=== PATIENT | male | born 1955 | race African-American/Black ===

== ENCOUNTER → 2023-08-25 | Emergency (ER) | payer OTHER, MEDICARE ==
[~2023-08-25] MED LIST: CHLORPROMAZINE 25 MG TAB PO ONE; FAMOTIDINE 20 MG/2 ML VIAL IV ONE; METOCLOPRAMIDE 10 MG/2mL INJ ONE; NA CHLORIDE 0.9% 1,000 ML ONE
[2023-08-25 01:48] LABS: Absolute Basophils 0.1 K/uL (0-0.5); Absolute Eosinophils 0.2 K/uL (0-0.5); Absolute Lymphocytes (CBC) 1.7 K/uL (0.7-4.9); Absolute Monocytes 1.3 K/uL (0.1-1.3); Absolute Neutrophil 10.6 K/uL (1.8-8.0); Basophils % 0.4 % (0-1.3); Eosinophils % 1.1 % (0-4.4); Hematocrit 40.3 % (39.6-49.0); Hemoglobin 13.4 g/dL (13.6-17.9); Lymphocytes % 12.4 % (15.3-44.8); MCH 26.6 pg (27.0-35.0); MCHC 33.2 g/dL (32.0-36.0); MCV 80.2 fL (80-100); MPV 7.8 fL (7.6-11.3); Monocytes % 9.7 % (3.3-12.3); Neutrophils % 76.4 % (41.7-73.7); Nucleated Red Blood Cells % 0.1 % (0-0); Platelets 250 thou/uL (152-406); RBC Red Blood Cell Count 5.03 M/uL (4.33-5.43); Red Cell Distribution Width 15.1 % (12.1-15.2)
[2023-08-25 01:59] LABS: Albumin/Globulin Ratio 0.7 (1.1-1.8); Anion Gap 8.4 mEq/L (5.0-15.0); Bilirubin Total 0.6 mg/dL (0.2-1.0); Globulin 4.4 g/dL (2.3-3.5); Potassium 3.4 mEq/L (3.5-5.1); Protein, Total 7.4 g/dL (6.4-8.2)
[2023-08-25 04:58] LABS: Specific Gravity > 1.030 (1.005-1.030); Sqamous Epithelial <5 /HPF (None Seen); Urine Bacteria None Seen /HPF (<20); Urine Bilirubin NEGATIVE (Negative); Urine Blood Negative (Negative); Urine Clarity Clear (Clear); Urine Color Light-Yellow (Yellow); Urine Culture Reflex Order NOT NEEDED; Urine Glucose NEGATIVE (Negative); Urine Ketones TRACE (Negative); Urine Micro Reflex YN NO BILL MICROSCOPIC; Urine Mucus Slight /HPF (None Seen); Urine Nitrite NEGATIVE (Negative); Urine Protein NEGATIVE (Negative); Urine RBC None Seen /HPF (None Seen); Urine Urobilinogen Normal (Normal); Urine WBC <5 /HPF (<5)
--- NOTE | 2023-08-25 05:44 | EDPHYS ---
Physician Documentation [facility] Name: Gerhard Saravia Age: 68 yrs Sex: Male : 1955 Arrival Date: 08/25/2023 Time: 00:47 Bed 6 Private MD: ED Physician Wilmer Ruiz HPI: 08/24 00:57 This 68 yrs old Black Male presents to ER via Unassigned with complaints of Post sp4 Surgical Pain, Abdominal Pain, Constipation, Epigastric Pain, HICCUPS FOR 2+ DAYS. 05:52 Six 8-year-old male presents with abdominal discomfort and hiccups also abdominal sp4 bloating and distention and complaining of no bowel movement since surgery. Surgery was done at [facility] by Dr. Foy. Patient has had right inguinal hernia repair by Dr. Foy at [facility]. . Historical: - Allergies: 01:20 Flu shot; jb4 - PMHx: 01:20 Inguinal hernia; jb4 - PSHx: 01:20 hernia repair; jb4 - Immunization history:: Adult Immunizations up to date. - Social history:: Smoking status: Patient denies any tobacco usage or history of. - Family history:: not pertinent. ROS: 05:52 Constitutional: Negative for fever, chills, and weight loss, abdominal bloating, sp4 positive abdominal pain, positive constipation, positive hiccups 05:52 All other systems are negative, Exam: 05:52 Constitutional: This is a well developed, well nourished patient who is awake, alert, sp4 and in no acute distress. Head/Face: Normocephalic, atraumatic. Eyes: Pupils equal round and reactive to light, extra-ocular motions intact. Lids and lashes normal. Conjunctiva and sclera are not injected. Cornea within normal limits. Periorbital areas with no swelling, redness, or edema. ENT: Nares patent. No nasal discharge, no septal abnormalities noted. Tympanic membranes are normal and external auditory canals are clear. Oropharynx with no redness, swelling, or masses, exudates, or evidence of obstruction, uvula midline. Mucous membranes moist. Neck: Trachea midline, no thyromegaly or masses palpated, and no cervical lymphadenopathy. Supple, full range of motion without nuchal rigidity, or vertebral point tenderness. Chest/axilla: Normal chest wall appearance and motion. Nontender with no deformity. No lesions are appreciated. Cardiovascular: Regular rate and rhythm with a normal S1 and S2. No gallops, murmurs, or rubs. Normal PMI, no JVD. No pulse deficits. Respiratory: Lungs have equal breath sounds bilaterally, clear to auscultation and percussion. No rales, rhonchi or wheezes noted. No increased work of breathing, no retractions or nasal flaring. Abdomen/GI: Soft, with normal bowel sounds. No distension or tympany. No guarding or rebound. No evidence of tenderness throughout. Back: No spinal tenderness. No costovertebral tenderness. Male : There is a moderate-sized postoperative incision right groin associated with swelling and hematoma. Also postoperative scrotal swelling as well Skin: Warm, dry with normal turgor. Normal color with no rashes, no lesions, and no evidence of cellulitis. MS/ Extremity: Pulses equal, no cyanosis. Neurovascular intact. Full, normal range of motion. Neuro: Awake and alert, GCS 15, oriented to person, place, time, and situation. Cranial nerves II-XII grossly intact. Motor strength 5/5 in all extremities. Sensory grossly intact. Psych: Awake, alert, with orientation to person, place and time. Behavior, mood, and affect are within normal limits Vital Signs: 01:14 BP 153 / 83; Pulse 73; Resp 16; Temp 97.7(O); Pulse Ox 100% on R/A; Weight 115.67 kg jb4 (R); Height 5 ft. 7 in. (R); 02:30 BP 152 / 91; Pulse 83; Resp 14; Pulse Ox 96% on R/A; vc1 04:00 BP 140 / 82; Pulse 79; Resp 14; Pulse Ox 94% on R/A; vc1 05:30 BP 138 / 80; Pulse 81; Resp 15; Pulse Ox 95% ; vc1 01:14 Body Mass Index 39.94 (115.67 kg, 170.18 cm) jb4 MDM: 01:01 Patient medically screened. sp4 05:39 ED course: CLINICAL HISTORY: post hernia sx and pelvic pain, hiccups COMPARISON: None. sp4 TECHNIQUE: CTABDOMEN PELVIS WITH IV CONTRAST on 08/25/2023 1:15 AM CDT This exam was performed according to our departmental dose-optimization program, which includes automated exposure control, adjustment of the mA and/or kV according to patient size and/or use of iterative reconstruction technique. FINDINGS: Lower lungs are clear. Abdomen: The liver is normal in appearance. There is no biliary dilatation. Gallbladder is normal in appearance. The pancreas and spleen are normal in appearance. Adrenal glands are normal. Kidneys are mildly atrophic. There is mild fullness of the right renal collecting system and proximal right ureter. There is no clear distal ureteral obstructing lesion. Abdominal aorta is normal in course and caliber without aneurysm. There is no free air. There is no retroperitoneal adenopathy. Pelvis: There is no bowel obstruction. Urinary bladder is unremarkable. There is no free fluid. Appendix is normal. There is a moderate fat-containing right inguinal hernia containing portion of the bladder dome. There is air within the lower aspect of the inguinal hernia as well as within portions of the inferior right scrotal wall. There is a small fat-containing left inguinal hernia. There is diffuse scrotal edema bilaterally, more so on the right. There is stranding throughout the right groin subcutaneous fat with a small presumed hematoma measuring 3.2 cm. Skeleton: There are no acute osseous findings. No suspicious bony lesions. IMPRESSION: Mostly right inguinal hernia with extensive thickening of the scrotal wall as well as associated air within the inguinal hernia, as well as the scrotal wall. Although this all this could be postoperative, underlying infectious process is not excluded. Mild right hydronephrosis with no clear etiology. . 05:56 Differential Diagnosis altered mental status, sepsis, flu, Postoperative pain, sp4 postoperative ileus, postoperative bowel obstruction. Data reviewed: vital signs, nurses notes, old medical records, lab test result(s), radiologic studies, CT scan. Consideration of Admission/Observation Escalation of care including admission/observation considered. ED course: CT has ADLs and usually moderate the right inguinal hernia with extensive thickening of the scrotal wall as well as air within inguinal hernia. These are most likely postoperative findings, however there is also fat-containing material and an inguinal hernia as well as a bladder dome. There is no signs of obstructed bowel or incarcerated bowel. Patient has had flatus in the ER and then managed to have moderate-sized bowel movement and felt much better. At this time there is no rationale for emergent transfer. Patient was given CT disc with images. Will advise clear liquid diet for the next 24 hours. Patient will be advised to see his general surgeon in 2 to 5 days for follow-up in the office.. 08/24 01:08 Order name: CBC with Diff; Complete Time: 03:47 sp4 08/24 01:08 Order name: CMP; Complete Time: 03:47 sp4 08/24 01:08 Order name: Lipase; Complete Time: 03:47 sp4 08/24 01:16 Order name: Urinalysis W/Microscopic; Complete Time: 05:50 sp4 08/24 01:15 Order name: CT Abd/Pelvis - IV Contrast Only sp4 08/24 01:08 Order name: IV Saline Lock; Complete Time: 01:35 sp4 08/24 01:08 Order name: Labs collected and sent; Complete Time: 01:35 sp4 Administered Medications: 01:39 CANCELLED (not availablee): [id number] mg IVP once vc1 01:44 Drug: metoCLOPramide IVP 20 mg IVP once; over 15 mins Route: IVP; Site: right vc1 antecubital; 06:00 Follow up: Response: No adverse reaction; Marked relief of symptoms vc1 01:44 Drug: NS 0.9% IV 1000 ml IV at 1 bolus Per protocol; 1000 mL bolus Route: IV; Rate: 1 vc1 bolus; Site: right antecubital; 02:44 Follow up: IV Status: Completed infusion; IV Intake: 1000ml vc1 01:48 Drug: Famotidine IVP 20 mg IVP once; dilute with 10 mL 0.9% NaCl; give over 2 minutes vc1 Route: IVP; Site: right antecubital; 05:40 Follow up: Response: No adverse reaction; Marked relief of symptoms; Pain is decreased vc1 05:11 Not Given (Physician Discretion): [id number] mg PO once sp4 05:19 Drug: thorazine 25 mg PO once Route: PO; vc1 05:59 Follow up: Response: No adverse reaction; Marked relief of symptoms vc1 Disposition Summary: 08/25/23 05:44 Discharge Ordered Notes: Location: Home sp4 Problem: new sp4 Symptoms: have improved sp4 Condition: Stable sp4 Diagnosis - Abdominal pain, Generalized sp4 - Paralytic ileus sp4 - Post operative ileus sp4 - Singultus with hiccups sp4 Followup: sp4 - With: Private Physician - When: 5 - 6 days - Reason: Recheck today's complaints Discharge Instructions: - Discharge Summary Sheet sp4 - Ileus sp4 Forms: - Patient Portal Instructions sp4 Prescriptions: - promethazine 25 mg Oral tablet - take 1 tablet ORAL route every 6 hours As needed PRN nausea; 30 tablet; sp4 Refills: 0, Product Selection Permitted - dicyclomine 20 mg Oral tablet - take 1 tablet ORAL route every 8 hours PRN abdominal discomfort; 30 tablet; sp4 Refills: 0, Product Selection Permitted Signatures: Dispatcher [employer] Himanshu Palma RN RN jb4 Sade Velazquez RN RN vc1 Wilmer Ruiz MD MD sp4 Corrections: (The following items were deleted from the chart) 01:39 01:16 Prochlorperazine IVP 10 mg IVP once ordered. sp4 vc1
--- NOTE | 2023-08-25 05:44 | ER ---
Nurse's Notes [facility] Name: Gerhard Saravia Age: 68 yrs Sex: Male : 1955 Arrival Date: 08/25/2023 Time: 00:47 Bed 6 Private MD: Diagnosis: Abdominal pain, Generalized;Paralytic ileus;Post operative ileus ;Singultus with hiccups Presentation: 08/24 01:14 Chief complaint: Patient states: I had inguinal hernia repair yesterday, now I have jb4 hiccups, constipation, and my testicle is swollen. Coronavirus screen: At this time, the client does not indicate any symptoms associated with coronavirus-19. Ebola Screen: No symptoms or risks identified at this time. Initial Sepsis Screen: Does the patient meet any 2 criteria? No. Patient's initial sepsis screen is negative. Does the patient have a suspected source of infection? No. Patient's initial sepsis screen is negative. Risk Assessment: Do you want to hurt yourself or someone else? Patient reports no desire to harm self or others. Onset of symptoms was August 25, 2023. Transition of care: patient was not received from another setting of care. 01:14 Method Of Arrival: Ambulatory jb4 01:14 Acuity: FUNMI 3 jb4 Triage Assessment: 01:20 General: Appears in no apparent distress. uncomfortable, Behavior is calm, cooperative, jb4 appropriate for age. Pain: Complains of pain in abdomen and groin Pain does not radiate. Pain currently is 5 out of 10 on a pain scale. GI: Abdomen is round non-distended, obese, Reports constipation. Historical: - Allergies: 01:20 Flu shot; jb4 - PMHx: 01:20 Inguinal hernia; jb4 - PSHx: 01:20 hernia repair; jb4 - Immunization history:: Adult Immunizations up to date. - Social history:: Smoking status: Patient denies any tobacco usage or history of. - Family history:: not pertinent. Screenin:48 [facility] ED Fall Risk Assessment (Adult) History of falling in the last 3 months, vc1 including since admission No falls in past 3 months (0 pts) Confusion or Disorientation No (0 pts) Intoxicated or Sedated No (0 pts) Impaired Gait No (0 pts) Mobility Assist Device Used No (0 pt) Altered Elimination No (0 pt) Score/Fall Risk Level 0 - 2 = Low Risk Oriented to surroundings, Maintained a safe environment, Educated pt \T\ family on fall prevention, incl call for assistance when getting out of bed. Abuse screen: Denies threats or abuse. Nutritional screening: No deficits noted. Tuberculosis screening: No symptoms or risk factors identified. Assessment: 01:49 General: Appears in no apparent distress. uncomfortable, obese, Behavior is calm, vc1 cooperative, appropriate for age. Pain: Complains of pain in epigastric area, right upper quadrant, left upper quadrant, right lower quadrant and left lower quadrant Pain does not radiate. Pain currently is 5 out of 10 on a pain scale. Quality of pain is described as burning, Pain began suddenly, Is continuous, Alleviated by nothing. Aggravated by eating, Noted to be grimacing, guarding, Also complains of no other associated symptoms. Neuro: Level of Consciousness is awake, alert, obeys commands, Oriented to person, place, time, situation, Appropriate for age. Cardiovascular: Heart tones S1 S2 Capillary refill < 3 seconds Patient's skin is warm and dry. Respiratory: Airway is patent Respiratory effort is even, unlabored, Respiratory pattern is regular, symmetrical, Breath sounds are clear bilaterally. GI: Bowel sounds present X 4 quads. Abdomen is tender to palpation X 4 quads. Abd is rigid X 4 quads. Guarding noted Reports lower abdominal pain, upper abdominal pain, Patient states he has not passed any gas since his surgery. GI: Abdomen is round distended, Patient currently denies gaseousness, vomiting. : No deficits noted. No signs and/or symptoms were reported regarding the genitourinary system. EENT: No deficits noted. No signs and/or symptoms were reported regarding the EENT system. Derm: No deficits noted. No signs and/or symptoms reported regarding the dermatologic system. 02:46 Reassessment: No changes from previously documented assessment. Patient and/or family vc1 updated on plan of care and expected duration. Pain level reassessed. Patient is alert, oriented x 3, equal unlabored respirations, skin warm/dry/pink. 04:21 Reassessment: Patient and/or family updated on plan of care and expected duration. Pain vc1 level reassessed. Patient is alert, oriented x 3, equal unlabored respirations, skin warm/dry/pink. Patient states feeling better. Patient states symptoms have improved. GI: Reports Passed gas. 05:58 Reassessment: No changes from previously documented assessment. Patient and/or family vc1 updated on plan of care and expected duration. Pain level reassessed. Patient is alert, oriented x 3, equal unlabored respirations, skin warm/dry/pink. Vital Signs: 01:14 BP 153 / 83; Pulse 73; Resp 16; Temp 97.7(O); Pulse Ox 100% on R/A; Weight 115.67 kg jb4 (R); Height 5 ft. 7 in. (R); 02:30 BP 152 / 91; Pulse 83; Resp 14; Pulse Ox 96% on R/A; vc1 04:00 BP 140 / 82; Pulse 79; Resp 14; Pulse Ox 94% on R/A; vc1 05:30 BP 138 / 80; Pulse 81; Resp 15; Pulse Ox 95% ; vc1 01:14 Body Mass Index 39.94 (115.67 kg, 170.18 cm) jb4 ED Course: 00:50 Patient arrived in ED. jj6 00:56 Wilmer Ruiz MD is Attending Physician. sp4 01:19 Radiology exam delayed due to lab results not completed at this time. (BUN/Creatinine) eh4 IV insertion attempt and/or patient not having appropriate IV at this time. 01:20 Triage completed. jb4 01:21 Arm band placed on right wrist. jb4 01:34 Initial lab(s) drawn, by me. Inserted saline lock: 20 gauge in right antecubital area, vc1 using aseptic technique. Blood collected. 01:35 CBC with Diff Sent. vc1 01:35 CMP Sent. vc1 01:35 Lipase Sent. vc1 01:52 Patient has correct armband on for positive identification. Placed in gown. Bed in low vc1 position. Pulse ox on. NIBP on. 02:32 CT Abd/Pelvis - IV Contrast Only In Process Unspecified. EDMS 02:46 Sade Velazquez, RN is Primary Nurse. vc1 04:00 Door closed. Warm blanket given. vc1 04:21 Warm blanket given. kmf 05:58 No provider procedures requiring assistance completed. IV discontinued, intact, vc1 bleeding controlled, No redness/swelling at site. Pressure dressing applied. 05:59 Provided Education on: Follow up with surgeon. vc1 Administered Medications: 01:39 CANCELLED (not availablee): [id number] mg IVP once vc1 01:44 Drug: metoCLOPramide IVP 20 mg IVP once; over 15 mins Route: IVP; Site: right vc1 antecubital; 06:00 Follow up: Response: No adverse reaction; Marked relief of symptoms vc1 01:44 Drug: NS 0.9% IV 1000 ml IV at 1 bolus Per protocol; 1000 mL bolus Route: IV; Rate: 1 vc1 bolus; Site: right antecubital; 02:44 Follow up: IV Status: Completed infusion; IV Intake: 1000ml vc1 01:48 Drug: Famotidine IVP 20 mg IVP once; dilute with 10 mL 0.9% NaCl; give over 2 minutes vc1 Route: IVP; Site: right antecubital; 05:40 Follow up: Response: No adverse reaction; Marked relief of symptoms; Pain is decreased vc1 05:11 Not Given (Physician Discretion): [id number] mg PO once sp4 05:19 Drug: thorazine 25 mg PO once Route: PO; vc1 05:59 Follow up: Response: No adverse reaction; Marked relief of symptoms vc1 Medication: 01:52 VIS not applicable for this client. vc1 Intake: 02:44 IV: 1000ml; Total: 1000ml. vc1 Outcome: 05:44 Discharge ordered by . sp4 05:58 Discharged to home ambulatory, vc1 05:58 Condition: good 05:58 Discharge instructions given to patient, Instructed on discharge instructions, follow up and referral plans. medication usage, Demonstrated understanding of instructions, follow-up care, medications, Prescriptions given X 2, 05:59 Patient left the ED. vc1 Signatures: Dispatcher [employer] EDMS Himanshu Gutiérrez RN RN jb4 Valentina Calix6 Sade Velazquez RN RN vc1 Bam Bernstein Sergey, MD MD sp4 Shabana Wilks [facility]
[2023-08-25 06:28] VITALS: BP 138/80; TEMP 97.7; O2SAT 95
--- NOTE | 2023-08-25 12:39 | RAD REPORT ---
EXAM DESCRIPTION: CT - Abdomen Pelvis W Contrast - 08/25/2023 5:59 am CLINICAL HISTORY: Post hernia sx and pelvic pain, hiccups COMPARISON: None. TECHNIQUE: CT ABDOMEN PELVIS WITH IV CONTRAST on 08/25/2023 1:15 AM CDT This exam was performed according to our departmental dose-optimization program, which includes autom ated exposure control, adjustment of the mA and/or kV according to patient size and/or use of iterati ve reconstruction technique. FINDINGS: Lower lungs are clear. Abdomen: The liver is normal in appearance. There is no biliary dilatation. Gallbladder is normal in appearance. The pancreas and spleen are normal in appearance. Adrenal glands are normal. Kidneys are mildly atrophic. There is mild fullness of the right renal collecting system and proximal right urete r. There is no clear distal ureteral obstructing lesion. Abdominal aorta is normal in course and caliber without aneurysm. There is no free air. There is no r etroperitoneal adenopathy. Pelvis: There is no bowel obstruction. Urinary bladder is unremarkable. There is no free fluid. Appen luis is normal. There is a moderate fat-containing right inguinal hernia containing portion of the regla dder dome. There is air within the lower aspect of the inguinal hernia as well as within portions of the inferior right scrotal wall. There is a small fat-containing left inguinal hernia. There is diffu se scrotal edema bilaterally, more so on the right. There is stranding throughout the right groin sub cutaneous fat with a small presumed hematoma measuring 3.2 cm. Skeleton: There are no acute osseous findings. No suspicious bony lesions. IMPRESSION: Mostly right inguinal hernia with extensive thickening of the scrotal wall as well as as sociated air within the inguinal hernia, as well as the scrotal wall. Although this all this could be postoperative, underlying infectious process is not excluded. Mild right hydronephrosis with no clear etiology. Electronically signed by: Stalin Hobbs MD 08/25/2023 05:23 AM CDT Due to temporary technical issues with the PACS/Fluency reporting system, reports are being signed by the in house radiologist without review as a courtesy to ensure prompt reporting. The interpreting r adiologist is fully responsible for the content of the report.
== END ==
LOC: ER 00:47
DX: K91.30 Postprocedural intestinal obstruction, unspecified as to partial versus complete (principal); R06.6 Hiccough; Z98.890 Other specified postprocedural states; Z88.7 Allergy status to serum and vaccine
CPT/HCPCS: 96361; 85025; 81001; 36415; 83690; 80053; 74177; 96375; 96374; 99284; Q9967; Q0161; J2765; J7030